=== PATIENT | male | born 1960 | race Native Hawaiian/Other Pacific Islander ===

== ENCOUNTER 2022-09-21 16:23 | Emergency (ER) | payer OTHER ==
[~2022-09-21] VITALS: Ht 162.6 cm; Wt 117.9 kg
[2022-09-21 16:23] VITALS: TEMP 98
[2022-09-21] MEDS ORDERED: ELIQUIS5 MG PO (16:45)
[2022-09-21 16:47] LABS: PLATELET COUNT 271 K/uL (142-355)
[2022-09-21 16:58] LABS: PARTIAL THROMBOPLASTIN TIME 25.6 SECONDS (24.5-33.6)
[2022-09-21 18:15] VITALS: BP 140/80
== END 2022-09-21 18:15 | disposition home or self-care (01) ==
LOC: ED 16:23
PROVIDERS: Family Medicine
DX: I47.1 Supraventricular tachycardia (principal); R55 Syncope and collapse; E66.01 Morbid (severe) obesity due to excess calories
CPT/HCPCS: 80053; 80307; 81000; 82550; 84484; 85027; 85610; 85730; 93005; 96361; 96374; 99284; J0153